=== PATIENT | female | born 1940 | race Caucasian/White ===

== ENCOUNTER 2017-05-05 06:32 | Day surgery (SDC) | payer OTHER ==
[~2017-05-05] VITALS: Ht 165.1 cm; Wt 77.3 kg
[~2017-05-05 06:32] MED LIST: ASPI81TA11 PO
[2017-05-05 07:13] VITALS: BP 147/93; PULSE 62; RESP 20; TEMP 97.7; O2SAT 92
[2017-05-05] MEDS ORDERED: MULT-65 PO (07:17)
[2017-05-05] MEDS ORDERED: PRED20 PO (07:17)
[2017-05-05] MEDS ORDERED: ASPI-516 CHEW (07:17)
[2017-05-05] MEDS ORDERED: CHOL10008 PO (07:17)
[2017-05-05] MEDS ORDERED: ATOR20TA15 PO (07:17)
[2017-05-05] MEDS ORDERED: BISO10TA2 PO (07:17)
[2017-05-05] MEDS ORDERED: VANCOMYCIN HCL 1000 MG VIAL ONE (08:01)
[2017-05-05] MEDS ORDERED: ceFAZolin 2 GM PREMIX 50 ML ONE (08:02)
[2017-05-05] MEDS ORDERED: ceFAZolin 2 GM PREMIX 50 ML - implanted port/tunneled catheter insertion IV SCH ×2 (08:30)
[2017-05-05] MEDS ORDERED: SODIUM CHLORIDE 0.9% 1000 ML IV SCH ×2 (08:30)
[2017-05-05] MEDS ORDERED: VANCOMYCIN 1000 MG/NS 250 ML - implanted port/tunneled catheter IV SCH ×4 (08:30)
[2017-05-05] MEDS ORDERED: MIDAZOLAM HCL 2 MG/2 ML VIAL ONE (08:32)
[2017-05-05 09:35] VITALS: BP 131/64; PULSE 59; RESP 18; TEMP 98.1; O2SAT 93
--- NOTE | 2017-05-05 09:40 | PD.RAD ---
Post Procedure Progress Note Pre Procedure Diagnosis: (1) Lung cancer Post Procedure Diagnosis: (1) Lung cancer Procedure Date: May 05, 2017 Supervising Radiologist: Sudarshan Dennis Proceduralist/Assist: Heather Knowles, RT(R)(CV), Armin Carmen, RT(R) Anesthesia: Conscious Sedation Plan of Activity Patient to Unit: ROPU Patient Condition: Good See PACS Report for procedural detail/treatment Sudarshan Dennis MD May 05, 2017 09:40
[2017-05-05 09:50] VITALS: BP 150/84; PULSE 63; RESP 20; O2SAT 93
--- NOTE | 2017-05-05 10:03 | RADRPT ---
EXAM DATE/TIME: 05/05/2017 08:20 [place] COMPARISON: No previous studies available for comparison. INDICATIONS : Patient presents with lung cancer in need of port placement for treatment. MEDICAL HISTORY : COPD High Lipids HTN Osteoarthritis SURGICAL HISTORY : Basal cell skin cancer Tubal ligation Colonoscopy in 2010 Knee surgery, left 1994 ENCOUNTER: Initial ACUITY: 1 month PAIN SCORE: 0/10 LOCATION: N/A FLUORO TIME: 0.3 minutes IMAGE SERIES: SEDATION TIME: 30 minutes ACCESS: Right internal jugular vein SEDATION: 1.) 2 mg midazolam (Versed) IV 2.) 100 mcg fentanyl (Sublimaze) IV Prophylactic antibiotics were administered with appropriate pre-procedure timing. Vancomycin within 2 hours of procedure, Ancef (or alternative) within 1 hour of procedure. DEVICE: 1. 8 [place] single lumen Bard Power Port PROCEDURE : 1. Continuous pulse oximetry and EKG monitoring. 2. Intravenous conscious sedation. 3. Ultrasound guidance for venous access. 4. Fluoroscopic guided implantable central venous port placement. The patient was placed supine. The neck was prepped in sterile fashion. Full sterile technique was u sed, including cap, mask, sterile gloves and gown, and a large sterile sheet. Hand hygiene and 2% ch lorhexidine Betadine was utilized per protocol for cutaneous antisepsis with appropriate dry time for site. Sterile gel and sterile probe cover were utilized for ultrasound guidance. The skin and sub cutaneous tissues were infiltrated with local anesthetic solution. Under direct ultrasound guidance, central venous access was accomplished in the targeted vessel. The ultrasound images depicting access guidance were stored and saved to PACS for permanent record. A s ubcutaneous pocket was created using blunt dissection. The port was introduced to the pocket. The c atheter tubing was fed through a subcutaneous tunnel to the venotomy site. The catheter tubing was c ut to a suitable length and then was introduced through a valved Peel-Away sheath and positioned with catheter tubing tip at the cavo-atrial junction level. The pocket incision was closed with subcutic ular Vicryl suture. Steri-Strips were applied. The port was flushed and locked with heparin solutio n per protocol. Sterile dressing was applied to the site. The patient tolerated the procedure well. Conscious sedation was performed with the prescribed dosages and duration as above in the presence of an independent trained radiology nurse to assist in the monitoring of the patient. EKG and oximetry remained stable throughout the procedure. The patient tolerated the procedure well and there were no complications. The patient was sent to post anesthesia recovery in stable condition. CONCLUSION: Uncomplicated ultrasound and fluoroscopic guided implanted central venous port catheter placement as described in detail above. An 8 [place] Power port was placed. Sudarshan Dennis MD on May 05, 2017 at 10:00 Board Certified Radiologist. This report was verified electronically.
[2017-05-05 10:20] VITALS: BP 123/80; PULSE 60; RESP 18; O2SAT 93
[2017-05-05 10:50] VITALS: BP 138/73; PULSE 60; RESP 18; O2SAT 99
[2017-05-05 11:20] VITALS: BP 127/67; PULSE 60; RESP 18; O2SAT 91
== END 2017-05-05 11:40 | disposition home or self-care (01) ==
LOC: HROP 06:32 → HRIP 06:38 → HROP 11:40
PROVIDERS: ATTEND Internal Medicine
DX: Z45.2 Encounter for adjustment and management of vascular access device (principal); C34.90 Malignant neoplasm of unspecified part of unspecified bronchus or lung; I10 Essential (primary) hypertension; J44.9 Chronic obstructive pulmonary disease, unspecified; M19.90 Unspecified osteoarthritis, unspecified site; Z79.82 Long term (current) use of aspirin
CPT/HCPCS: 36561; 76937; 77001; 85610; 85730; 99152; 99153; C1788; J0690; J1642; J2250; J3010; J3370; J7030; J7050